=== PATIENT | male | born 1980 | race Caucasian/White ===

== ENCOUNTER 2018-01-18 15:05 | Emergency (ER) | payer OTHER ==
[~2018-01-18] VITALS: Ht 182.9 cm; Wt 104.3 kg
[~2018-01-18 15:05] MED LIST: BUPR1FIL SL
[2018-01-18] MEDS ORDERED: LORAZEPAM INJ 2 MG/ML VIAL ONE (15:55)
[2018-01-18] MEDS ORDERED: IV NS 0.9% 1,000 ML BAG IV ONE (16:00)
[2018-01-18] MEDS ORDERED: LORAZEPAM INJ 2 MG/ML VIAL IM/IV ONE (16:00)
[2018-01-18] MEDS ORDERED: HALOPERIDOL LACTATE INJ 5 MG/ML VIAL IM ONE (16:00)
[2018-01-18] MEDS ORDERED: LORAZEPAM INJ 2 MG/ML VIAL IV ONE (16:00)
[2018-01-18] MEDS ORDERED: HALOPERIDOL LACTATE INJ 5 MG/ML VIAL ONE (16:01)
--- NOTE | 2018-01-18 16:01 | NUR ---
PT COMBATIVE & VERY VIOLENT. REFUSING CXR, ER & SECURITY ARE AWARE.
--- NOTE | 2018-01-18 16:10 | NUR ---
ASSUMED CARE OF PT. PT APPEARS AGGRESSIVE AND IS ABUSIVE TOWARDS STAFF. PT IS YELLING AND SECURITY IS AT THE BEDSIDE. PT WAS CALMED DOWN. 20G IV STARTED IN RT HAND. BLOOD WAS DRAWN AND SENT TO LAB. PT WAS MEDICATED EARLIER. PT IS ON THE MONITOR AND CONTINUOUS PULSE OX. VSS
[2018-01-18 16:17] LABS: BASOPHILS # (AUTO) 0.1 /CMM (0.0-0.2); EOSINOPHILS # (AUTO) 0.4 /CMM (0.0-0.7); EOSINOPHILS % (AUTO) 5.8 % (0.0-6.0); HEMATOCRIT 43 % (39-51); HEMOGLOBIN 14.7 g/dL (13.5-17.5); LYMPHOCYTES # (AUTO) 2.6 /CMM (0.8-4.8); LYMPHOCYTES % (AUTO) 38.8 % (20.0-44.0); MEAN CORPUSCULAR HEMOGLOBIN 31 PG (26.0-33.0); MEAN CORPUSCULAR HGB CONC 34 g/dl (31.0-36.0); MEAN CORPUSCULAR VOLUME 89 fL (80-96); MONOCYTES # (AUTO) 0.7 /CMM (0.1-1.30); MONOCYTES % (AUTO) 10.6 % (2.0-12.0); NEUTROPHILS % (AUTO) 42.8 % (43.0-81.0); PLATELET COUNT (AUTO) 239 /CMM (150-450); RDW COEFFICIENT OF VARIATION 13.6 (11.5-15.0); RED BLOOD CELL COUNT(AUTO) 4.84 MIL/uL (4.5-6.0); WHITE BLOOD COUNT (AUTO) 6.8 K/uL (4.3-11.0)
[2018-01-18 16:28] LABS: CALCIUM, SERUM 8.9 mg/dL (8.5-10.1); CARBON DIOXIDE 24 mmol/L (21-32); CHLORIDE 106 mmol/L (98-107); CREATININE 1.1 mg/dL (0.6-1.3); GLUCOSE 90 mg/dL (74-106); POTASSIUM 3.9 mmol/L (3.5-5.1); SODIUM SERUM 140 mmol/L (136-145); UREA NITROGEN, BLOOD 13 mg/dL (7-18)
[2018-01-18] MEDS ORDERED: diphenhydrAMINE HCL 50 MG/ML VIAL IV ONE (16:30)
[2018-01-18 16:32] LABS: INR 0.97 (0.85-1.15)
[2018-01-18 16:37] LABS: TROPONIN I < 0.017 ng/mL (0.00-0.056)
[2018-01-18] MEDS ORDERED: diphenhydrAMINE HCL 50 MG/ML VIAL ONE (16:44)
--- NOTE | 2018-01-18 16:47 | NUR ---
PT REFUSED BENADRYL IV.
--- NOTE | 2018-01-18 17:08 | NUR ---
XRAY IN PROGRESS AT THE BEDSIDE.
--- NOTE | 2018-01-18 18:12 | NUR ---
PT AMBULATED TO THE BATHROOM AND BACK TO BED #18 WITH A STEADY GAIT. PT IS NOW SLEEPING
--- NOTE | 2018-01-18 18:52 | NUR ---
URINE SAMPLE NOT OBTAINED. Patient discharged to home in stable condition. Written and verbal after care instructions given. Patient verbalizes understanding of instruction.IV removed. Catheter intact and site benign. Pressure and 4x4 applied to site. No bleeding noted. PT AMBULATED OUT WITH A STEADY GAIT. PT'S IS HERE TO PARK WARDEN THE PT.
--- NOTE | 2018-01-18 18:58 | NUR ---
CHRIS BAKER AT THE BEDSIDE SPEAKING TO THE PT RE: D/C. PT LEFT WITHOUT D/C PAPERWORK. Addendum: 01/18/18 at 1903 by TIERA THIS WAS AT 1852.
[2018-01-18 19:04] VITALS: BP 138/85
== END 2018-01-18 19:05 | disposition home or self-care (01) ==
LOC: ER 15:07
DX: F29 Unspecified psychosis not due to a substance or known physiological condition (principal); F19.10 Other psychoactive substance abuse, uncomplicated; F11.10 Opioid abuse, uncomplicated; F10.10 Alcohol abuse, uncomplicated; Z88.0 Allergy status to penicillin
CPT/HCPCS: 36415; 71045; 73060; 80048; 84484; 85025; 85730; 93005; 96360; 96372 ×2; 99285; A4606; J1630; J2060; J7030 ×2; Z7610; J1200

== ENCOUNTER 2018-01-20 19:45 | Emergency (ER) | payer OTHER ==
--- NOTE | 2018-01-20 19:55 | NUR ---
PT CALLED TO TRIAGE, NO RESPONSE
== END 2018-01-20 19:55 | disposition left against medical advice (07) ==
LOC: ER 19:45
DX: Z53.21 Procedure and treatment not carried out due to patient leaving prior to being seen by health care provider (principal)

== ENCOUNTER 2019-06-18 09:28 | Emergency (ER) | payer BC, OTHER ==
[~2019-06-18] VITALS: Ht 177.8 cm; Wt 88.9 kg
--- NOTE | 2019-06-18 09:35 | NUR ---
[id number] FRM USP, NOTED TO BE ALTERED. INVOLUNTARY JERKING NOTED. BG 62 IN THE FIELD. PER EMS TRIED TO GIVE ORAL GLUCOSE. PATIENT RESPONSIVE TO PAIN,
[2019-06-18] MEDS ORDERED: IV NS 0.9% 1,000 ML BAG IV ONE (10:00)
--- NOTE | 2019-06-18 10:04 | NUR ---
(VALERIE) [phone] (CELL PHONE)
[2019-06-18 10:11] LABS: BASOPHILS % (AUTO) 0.6 % (0.0-2.0); HEMATOCRIT 42 % (39-51); HEMOGLOBIN 14.4 g/dL (13.5-17.5); LYMPHOCYTES # (AUTO) 1.4 /CMM (0.8-4.8); LYMPHOCYTES % (AUTO) 25.3 % (20.0-44.0); MEAN CORPUSCULAR HGB CONC 34 g/dl (31.0-36.0); MEAN CORPUSCULAR VOLUME 92 fL (80-96); MONOCYTES # (AUTO) 0.5 /CMM (0.1-1.30); MONOCYTES % (AUTO) 9.7 % (2.0-12.0); NEUTROPHILS # (AUTO) 3.5 /CMM (1.8-8.9); NEUTROPHILS % (AUTO) 61.4 % (43.0-81.0); PLATELET COUNT (AUTO) 212 /CMM (150-450); RED BLOOD CELL COUNT(AUTO) 4.62 MIL/uL (4.5-6.0); WHITE BLOOD COUNT (AUTO) 5.7 K/uL (4.3-11.0)
[2019-06-18 10:23] LABS: CALCIUM, SERUM 8.8 mg/dL (8.5-10.1); CARBON DIOXIDE 32 mmol/L (21-32); CHLORIDE 102 mmol/L (98-107); CREATININE 1.1 mg/dL (0.6-1.3); GLUCOSE 92 mg/dL (74-106); SODIUM SERUM 142 mmol/L (136-145); UREA NITROGEN, BLOOD 13 mg/dL (7-18)
[2019-06-18 10:29] LABS: ACETAMINOPHEN 0 ug/ml (10-30); ALANINE AMINOTRANSFERASE 28 U/L (12-78); ALBUMIN 3.7 g/dL (3.4-5.0); ALCOHOL, BLOOD < 3 mg/dL (0-0); ALKALINE PHOSPHATASE 78 U/L (46-116); ASPARTATE AMINOTRANSFERASE 29 U/L (15-37); BILIRUBIN,DIRECT 0.1 mg/dL (0.0-0.2); BILIRUBIN,TOTAL 0.3 mg/dL (0.2-1.0); SALICYLATE 1.1 mg/dL (2.8-20.0); TOTAL PROTEIN, SERUM 7.1 g/dL (6.4-8.2)
[2019-06-18 10:37] LABS: APPEARANCE,URINE Clear (CLEAR); BILIRUBIN,URINE Negative (NEGATIVE); BLOOD, URINE Negative Ery/uL (NEGATIVE); COLOR,URINE Yellow (YELLOW); KETONES,URINE Negative (NEGATIVE); LEUKOCYTE ESTERASE ,URINE Negative (NEGATIVE); NITRITE, URINE Negative (NEGATIVE); PH,URINE 7.5 (5.0-8.0); PROTEIN,URINE Negative (NEGATIVE); UGLUCOSE Negative (NEGATIVE); UROBILINOGEN,URINE 0.2 EU/dL (0.2)
[2019-06-18 10:54] LABS: SERUM AMMONIA 59 umol/L (11-32)
[2019-06-18] MEDS ORDERED: GABA600T12 PO (11:17)
[2019-06-18] MEDS ORDERED: BUSP10TA35 PO (11:17)
[2019-06-18] MEDS ORDERED: DIAZ10TA PO (11:17)
[2019-06-18] MEDS ORDERED: QUET200T PO (11:18)
[2019-06-18] MEDS ORDERED: LISD40CA PO (11:21)
--- NOTE | 2019-06-18 11:51 | NUR ---
CALLED NURSING SUP FOR BED
--- NOTE | 2019-06-18 11:55 | NUR ---
PATIENT AWAKE AND ALERT, ORIENTED 4, NO DISTRESS NOTED. AT BEDSIDE.
--- NOTE | 2019-06-18 12:47 | NUR ---
PATIENT A/OX4, UNABLE TO RECALL WHAT HAPPENED, DENIES USE OF DRUGS. OFFERED FOOD, BUT PATIENT STATED WILL EAT OUTSIDE. IV removed. Catheter intact and site benign. Pressure and 4x4 applied to site. No bleeding noted. Patient discharged to home in stable condition. Written and verbal after care instructions given. Patient verbalizes understanding of instruction. AT BEDSIDE.
[2019-06-18 12:48] VITALS: BP 128/70
== END 2019-06-18 12:48 | disposition home or self-care (01) ==
LOC: ER 09:33
DX: R41.82 Altered mental status, unspecified (principal); Z88.0 Allergy status to penicillin; Z79.899 Other long term (current) drug therapy
CPT/HCPCS: 36415; 70450; 71045; 80048; 80076; 80305; 80307; 80329; 81001; 82140; 82962; 84484; 85025; 87081; 96360; 99284; G0480; J7030; 81000-TC

== ENCOUNTER 2019-07-24 20:54 | Emergency (ER) | payer BC, OTHER ==
[~2019-07-24] VITALS: Ht 177.8 cm; Wt 90.3 kg
[~2019-07-24 20:54] MED LIST changes: +BUSP10TA35 PO; +DIAZ10TA PO; +GABA600T12 PO; +LISD40CA PO; +QUET200T PO
[2019-07-24 20:56] VITALS: BP 144/71
--- NOTE | 2019-07-24 21:18 | NUR ---
PT DID NOT WANT TO BE SEEN BY MD, PT LEFT, AMB WITH STEADY GAIT
== END 2019-07-24 21:19 | disposition left against medical advice (07) ==
LOC: ER 20:55
DX: F11.10 Opioid abuse, uncomplicated (principal); Z53.21 Procedure and treatment not carried out due to patient leaving prior to being seen by health care provider

== ENCOUNTER 2019-08-22 12:55 | Emergency (ER) | payer BC, OTHER ==
[~2019-08-22] VITALS: Ht 177.8 cm; Wt 90.7 kg
--- NOTE | 2019-08-22 13:22 | NUR ---
CALLED TO TRIAGE,NO ANSWER
--- NOTE | 2019-08-22 14:06 | NUR ---
Note irais in EDM - 08/22/19 at 1407 by JUAN MANUEL feels better, IV removed. Catheter intact and site benign. Pressure and 4x4 applied to site. No bleeding noted. Patient discharged to home in stable condition. Written and verbal after care instructions given. Patient verbalizes understanding of instruction.
[2019-08-22 14:13] VITALS: BP 142/95
[2019-08-22] MEDS ORDERED: LIDOCAINE 1%-EPI 1:100,000 20 ML VIAL ONE (16:54)
== END 2019-08-22 18:06 | disposition home or self-care (01) ==
LOC: ER 13:11
DX: S01.112A Laceration without foreign body of left eyelid and periocular area, initial encounter (principal); S09.8XXA Other specified injuries of head, initial encounter; F11.10 Opioid abuse, uncomplicated; F10.10 Alcohol abuse, uncomplicated; Y90.9 Presence of alcohol in blood, level not specified; Z88.0 Allergy status to penicillin; W18.09XA Striking against other object with subsequent fall, initial encounter; Y93.89 Activity, other specified; Y92.89 Other specified places as the place of occurrence of the external cause; Y99.8 Other external cause status
CPT/HCPCS: 12052; 99284; J3490